=== PATIENT | female | born 1985 | race Caucasian/White ===

== ENCOUNTER 2018-08-10 11:10 | Outpatient (CLI) | payer BC ==
[2018-08-10 13:16] VITALS: PULSE 63; RESP 16; TEMP 98
--- NOTE | 2018-08-12 08:46 | P.MSEPDOC ---
Presenting Problems - Arrival Data Date of Arrival on Unit: 08/10/18 Time of Arrival on Unit: 11:10 Mode of Transport: Ambulatory - Complaint OB-Reason for Admission/Chief Complaint: Other Comment: decrease movement Medical History - Information : 1 Para: 0 Term: 0 : 0 Abortions: Spontaneous or Elective: 0 Number of Living Children: 0 - Gestational Age Gestational Age by [facility]I (wks/days): 36 Weeks and 2 Days Review of Systems - Review of Systems Constitutional: No problems Breast: No problems ENT: No problems Cardiovascular: No problems Respiratory: No problems Gastrointestinal: No problems Genitourinary: No problems Musculoskeletal: No problems Neurological: No problems Skin: No problems Vital Signs - Temperature Temperature: 98.0 F Temperature Source: Oral - Pulse Supine Pulse Rate: 63 Pulse Assessment Method: Automatic Cuff - Respirations Respiratory Rate: 16 Oxygen Delivery Method: Room Air Medical Screen Scoring (Pre) - Cervical Exam Dilation: Exam Deferred Effacement: Exam Deferred - Uterine Contractions Frequency: N/A Duration: N/A Intensity: N/A - Maternal Vital Signs Maternal Temperature: N/A - Pain Assessment Pain Intensity: 0 Pain Management Goal: 0 Pain Radiation Location: 0 Pain Duration: 0 - Maternal Trauma Maternal Trauma: N/A - Assessment Baseline FHR: 120 Heart Rate - NICHD Category: Category I (Normal) = 0 NST: Reactive Position: N/A - Total Score Total Score (Pre): 0 Physician Notification (Pre) - Physician Notified Physician Notified Date: 08/10/18 Physician Notified Time: 13:16 Physician/Practitioner Notifed:: dr dupont New Order Received: Yes - Notification Comment Comment: pt to discharge home and keep 315 appointment Disposition - Disposition OB Disposition: Discharge to home Discharge Date: 08/10/18 Discharge Time: 13:16 I agree with the RN Medical Screening Exam: Yes Risk & Benefit of care provided described in d/c instruction: Yes Diagnosis: DECREASED MOVEMENTS, THIRD TRIMESTER, FETUS 1
== END 2018-08-10 13:18 | disposition home or self-care (01) ==
LOC: FBPOP 11:10
PROVIDERS: ATTEND Obstetrics & Gynecology
DX: O36.8131 Decreased fetal movements, third trimester, fetus 1 (principal); Z3A.36 36 weeks gestation of pregnancy
CPT/HCPCS: 59025; 99213

== ENCOUNTER 2018-08-21 12:10 | Inpatient (IN) | payer BC ==
[2018-08-21] MEDS ORDERED: TERBUTALINE 1 MG/ML VIAL SQ PRN (15:36)
[2018-08-21] MEDS ORDERED: METHYLERGONOVINE 0.2 MG/ML 1 ML AMP IM PRN (15:36)
[2018-08-21] MEDS ORDERED: LIDOCAINE 0.5% (PF) 5 MG/ML (50 ML SDV) SQ PRN (15:36)
[2018-08-21] MEDS ORDERED: CARBOPROST TROMETHAMINE 250 MCG/ML 1 ML AMP IM PRN (15:36)
[2018-08-21] MEDS ORDERED: OXYTOCIN 10 UNIT/ML 1 ML VIAL IM PRN (15:36)
[2018-08-21] MEDS ORDERED: AMPICILLIN 2,000 MG in SODIUM CHLORIDE 0.9% 100 ML IVPB STA (15:37)
[2018-08-21] MEDS: LACTATED RINGERS 1,000 ML IV SCH ×2 (16:10→16:37)
[2018-08-21 16:19] VITALS: BMI 26.9
[2018-08-21 16:24] LABS: Basophils % (A) 0 %; Eosinophils # (A) 0.1 k/uL (0-0.7); Eosinophils % (A) 0 %; HCT 44.7 % (34.0-46.0); HGB 15.5 gm/dL (11.4-16.0); Lymphocytes # (A) 1.8 k/uL (1.0-4.8); Lymphocytes % (A) 12 %; MCH 31.7 pg (25.0-35.0); MCHC 34.7 g/dL (31.0-37.0); MCV 91.4 fL (80.0-100.0); Mean Platelet Volume 8.7; Monocytes # (A) 0.5 k/uL (0-1.0); Monocytes % (A) 4 %; Neutrophils # (A) 12.7 k/uL (1.3-7.7); Neutrophils % (A) 82 %; Platelet Count 218 k/uL (150-450); RBC 4.89 m/uL (3.80-5.40); RDW 13.1 % (11.5-15.5); WBC 15.5 k/uL (3.8-10.6)
[2018-08-21] MEDS ORDERED: ROPIVACAINE 5MG/ML 20ML VIAL ONE (16:31)
[2018-08-21] MEDS ORDERED: fentaNYL (PF) 50 MCG/ML 5 ML AMP ONE (16:31)
[2018-08-21] MEDS ORDERED: SODIUM CHLORIDE 0.9% 100 ML BAG ONE (16:31)
[2018-08-21] MEDS ORDERED: BENZOCAINE/MENTHOL SPRAY 1 GM/SPRAY AEROSOL TOPICAL PRN (18:57)
[2018-08-21] MEDS ORDERED: diphenhydrAMINE 50 MG CAP PO PRN (18:57)
[2018-08-21] MEDS ORDERED: diphenhydrAMINE 50 MG/ML 1 ML VIAL IVP PRN ×2 (18:57)
[2018-08-21] MEDS ORDERED: diphenhydrAMINE 25 MG CAP PO PRN (18:57)
[2018-08-21] MEDS ORDERED: HYDROCORTISONE 2.5% RECTAL CREAM 30 GM TUBE RECTAL PRN (18:57)
[2018-08-21] MEDS ORDERED: LANOLIN CREAM 5 GM TUBE TOPICAL PRN (18:57)
[2018-08-21] MEDS ORDERED: ZOLPIDEM 5 MG TAB PO PRN (18:57)
[2018-08-21] MEDS ORDERED: WITCH HAZEL 1 EACH MED..PAD TOPICAL PRN (18:57)
[2018-08-21] MEDS ORDERED: ACETAMINOPHEN TAB 325 MG TAB PO PRN (18:57)
[2018-08-21] MEDS ORDERED: MEASLES-MUMPS-RUBELLA VACC/PF 12,500 UNIT/0.5 ML VIAL SQ ONE (18:57)
[2018-08-21] MEDS ORDERED: SIMETHICONE 80 MG CHEWABLE PO PRN (18:57)
--- NOTE | 2018-08-21 18:59 | P.HPOB ---
History of Present Illness H&P Date: 08/21/18 Chief Complaint: Intrauterine at term: Active labor Livia is a 33-year-old at 37 weeks 6 days gestation who arrives in active labor making cervical change. She been servando throughout the night at presentation she was dilated to have sent meters by 2 hours later she was then 4. She was admitted for labor. Epidural was provided for pain management. Her course otherwise was generally unremarkable. She is have a low- lying placenta and had been measuring small for dates this had been followed closely. At this time all questions are answered for her. We'll plan spontaneous vaginal delivery and antibiotics for group B strep prophylaxis. Pertinent labs include O+ blood type Rh was negative, rubella is nonimmune, hepatitis B surface antigen and RPR were negative. GBS again was positive. Past Medical History Past Medical History: No Reported History History of Any Multi-Drug Resistant Organisms: None Reported Additional Past Surgical History / Comment(s): [place] tooth extraction, Left Calf I&D, Breast Biopsy Past Anesthesia/Blood Transfusion Reactions: No Reported Reaction Past Psychological History: No Psychological Hx Reported Smoking Status: Never smoker Past Alcohol Use History: None Reported Past Drug Use History: None Reported - Past Family History Father Family Medical History: Diabetes Mellitus, Hypertension, Thyroid Disorder Medications and Allergies Home Medications Medication Instructions Recorded Confirmed Type Pnv No.95/Ferrous Fum/Folic AC 1 each PO DAILY 08/21/18 08/21/18 History [ Multivitamin Tablet] Allergies Allergy/AdvReac Type Severity Reaction Status Date / Time sulfamethoxazole Allergy Anaphylaxis Verified 08/21/18 12:34 [From Bactrim] trimethoprim [From Bactrim] Allergy Anaphylaxis Verified 08/21/18 12:34 Exam Osteopathic Statement: *. No significant issues noted on an osteopathic structural exam other than those noted in the History and Physical/Consult. Vital Signs Temp Pulse Resp BP 08/21/18 16:00 98.3 F 86 18 115/65 08/21/18 12:37 98.2 F 74 16 125/74 Intake and Output 08/21/18 08/21/18 08/21/18 06:59 14:59 22:59 Other: Weight 71.214 kg 71.214 kg - OBG Physical Exam Breast: both: normal (no masses) Abdomen: bowel sounds normal, no diffuse tenderness, no bruit present, no guarding noted, no hepatomegaly, no splenomegaly, no mass Vulva: both: normal Vagina: normal moisture, no discharge Cervix: no lesion, no discharge Uterus: normal size, normal contour Adnexa: both: normal Anus/Rectum: normal perianal skin, no rectal mass, no hemorrhoids, heme negative Results Result Diagrams: 08/21/18 16:08 Abnormal Lab Results - Last 24 Hours (Table) 08/21/18 Range/Units 16:08 WBC 15.5 H (3.8-10.6) k/uL Neutrophils # 12.7 H (1.3-7.7) k/uL
--- NOTE | 2018-08-21 19:00 | P.PROBDLV ---
Vaginal Delivery Note - . Vaginal Delivery Note: Patient progressed complete and pushing with spontaneous vaginal delivery of a viable male over an intact perineum. Falling deliver the head anterior posterior shoulders were easily delivered followed by the remainder the baby. Mouth and nares were then bulb suctioned and baby was placed on mother's abdomen where the umbilical cord was allowed to pulsate for 60 seconds prior to clamping and cutting. Once this was accomplished nursery personnel was present to assume care. Placenta was then delivered intact Pitocin was added to the IV. scores were 8 and 9 at one and 5 minutes respectively. Weight is pending. Mother and baby are doing well and stable following delivery.
[2018-08-21] MEDS ORDERED: AMPICILLIN 1,000 MG in SODIUM CHLORIDE 0.9% 50 ML IVPB SCH (20:00)
[2018-08-21] MEDS: SENNOSIDES-DOCUSATE SODIUM 1 EACH TAB PO SCH (23:46)
[2018-08-22] MEDS: IBUPROFEN 600 MG TAB PO PRN ×2 (06:17→15:48)
[2018-08-22 07:41] LABS: Basophils # (A) 0.1 k/uL (0-0.2); Basophils % (A) 1 %; Eosinophils % (A) 0 %; HCT 38.5 % (34.0-46.0); HGB 12.7 gm/dL (11.4-16.0); Lymphocytes # (A) 2.8 k/uL (1.0-4.8); Lymphocytes % (A) 18 %; MCH 30.8 pg (25.0-35.0); MCV 93.3 fL (80.0-100.0); Mean Platelet Volume 9.8; Monocytes # (A) 0.9 k/uL (0-1.0); Monocytes % (A) 6 %; Neutrophils # (A) 11.5 k/uL (1.3-7.7); Neutrophils % (A) 74 %; Platelet Count 185 k/uL (150-450); RBC 4.13 m/uL (3.80-5.40); RDW 13.2 % (11.5-15.5); WBC 15.5 k/uL (3.8-10.6)
[2018-08-22] MEDS: SENNOSIDES-DOCUSATE SODIUM 1 EACH TAB PO SCH (08:00)
[2018-08-23] MEDS: SENNOSIDES-DOCUSATE SODIUM 1 EACH TAB PO SCH ×2 (00:13→09:14)
--- NOTE | 2018-08-23 08:43 | P.PNOBGVD ---
Subjective - Subjective Principal diagnosis: S/P NVD PPD #1 Interval history: Pt seen and examined. Denies N/V, F/C, CP, SOB, calf pain. Patient reports: Reports appetite normal, Reports voiding normally, Reports pain well controlled, Reports ambulating normally Objective - Latest Vital Signs Latest vital signs: Vital Signs Temp Pulse Resp BP Pulse Ox 08/22/18 23:55 98.3 F 64 16 119/75 08/22/18 16:00 97.5 F L 66 18 112/70 97 - Exam Lungs: bilateral: normal Chest: Normal S1, Normal S2 Extremities: Present: normal Abdomen: Present: normal appearance, soft Uterus: Present: normal, firm Assessment and Plan (1) Normal vaginal delivery Current Visit: Yes Status: Acute Code(s): O80 - ENCOUNTER FOR FULL-TERM UNCOMPLICATED DELIVERY SNOMED Code(s): 38313883 Plan: 1. cont pp care
[2018-08-23] MEDS: IBUPROFEN 600 MG TAB PO PRN ×2 (08:45→18:38)
--- NOTE | 2018-08-23 08:47 | P.DS ---
Providers Date of admission: 08/21/18 15:32 Expected date of discharge: 08/23/18 Attending physician: Frannie Maloney Primary care physician: Stated None - Discharge Diagnosis(es) (1) Normal vaginal delivery Current Visit: Yes Status: Acute Hospital Course: Pt admitted in labor. She underwent normal vaginal delivery. PP course was uncomplicated. Baby was admitted to the nursery with possible ileus. Pt will be discharged PPD #2 in stable condition to follow up with me in 6 weeks. Plan - Discharge Summary New Discharge Prescriptions: New Ibuprofen [Motrin] 600 mg PO Q6HR PRN #30 tab PRN Reason: Mild Pain Or Fever >= 100.5 No Action Pnv No.95/Ferrous Fum/Folic AC [ Multivitamin Tablet] 1 each PO DAILY Discharge Medication List Pnv No.95/Ferrous Fum/Folic AC [ Multivitamin Tablet] 1 each PO DAILY [History] Ibuprofen [Motrin] 600 mg PO Q6HR PRN #30 tab 08/23/18 [Rx] Follow up Appointment(s)/Referral(s): Frannie Maloney DO [Doctor of Osteopathic Medicine] - 6 Weeks Discharge Disposition: HOME SELF-CARE
[2018-08-23 09:04] VITALS: RESP 14
[2018-08-23 17:17] VITALS: BP 106/63; PULSE 63; TEMP 97.9
== END 2018-08-23 18:42 | disposition home or self-care (01) | DRG 807 ==
LOC: FBPOP 12:10 → 4FBP 15:32
PROVIDERS: ADMIT Obstetrics & Gynecology; ATTEND Obstetrics & Gynecology
PROC: 3E0R3NZ Introduction of Analgesics, Hypnotics, Sedatives into Spinal Canal, Percutaneous Approach (ICD-10-PCS; principal; 2018-08-21)
PROC: 00HU33Z Insertion of Infusion Device into Spinal Canal, Percutaneous Approach (ICD-10-PCS; principal; 2018-08-21)
PROC: 10907ZC Drainage of Amniotic Fluid, Therapeutic from Products of Conception, Via Natural or Artificial Opening (ICD-10-PCS; principal; 2018-08-21)
PROC: 10E0XZZ Delivery of Products of Conception, External Approach (ICD-10-PCS; principal; 2018-08-21)
DX: O36.5930 Maternal care for other known or suspected poor fetal growth, third trimester, not applicable or unspecified (principal); Z37.0 Single live birth; Z3A.37 37 weeks gestation of pregnancy; Z82.49 Family history of ischemic heart disease and other diseases of the circulatory system; Z83.3 Family history of diabetes mellitus; Z88.2 Allergy status to sulfonamides
CPT/HCPCS: 59025; 85025; 86850; 86900; 86901; 88307; 90471; 90707; 99213

== ENCOUNTER 2023-01-06 07:22 | Inpatient (IN) | payer BC ==
[2023-01-06] MEDS: LACTATED RINGERS 1,000 ML IV SCH ×2 (08:50→09:55)
[2023-01-06] MEDS ORDERED: ROPIVACAINE 5 MG/ML 20 ML AMPULE ONE (09:07)
[2023-01-06] MEDS ORDERED: SODIUM CHLORIDE 0.9% 100 ML BAG ONE (09:07)
[2023-01-06] MEDS ORDERED: fentaNYL (PF) 50 MCG/ML 5 ML AMP ONE (09:07)
[2023-01-06 09:15] LABS: Basophils # (A) 0.1 k/uL (0-0.2); Basophils % (A) 0 %; Eosinophils # (A) 0.1 k/uL (0-0.7); Eosinophils % (A) 0 %; HCT 42.6 % (34.0-46.0); Lymphocytes # (A) 1.9 k/uL (1.0-4.8); Lymphocytes % (A) 15 %; MCH 32.3 pg (25.0-35.0); MCHC 35.3 g/dL (31.0-37.0); MCV 91.5 fL (80.0-100.0); Mean Platelet Volume 10.3; Monocytes # (A) 0.5 k/uL (0-1.0); Monocytes % (A) 4 %; Neutrophils # (A) 10.2 k/uL (1.3-7.7); Neutrophils % (A) 79 %; Platelet Count 174 k/uL (150-450); RBC 4.65 m/uL (3.80-5.40); RDW 13.7 % (11.5-15.5)
[2023-01-06] MEDS ORDERED: CARBOPROST TROMETHAMINE 250 MCG/ML 1 ML AMP IM PRN (09:43)
[2023-01-06] MEDS ORDERED: miSOPROStoL 200 MCG TAB PO PRN (09:43)
[2023-01-06] MEDS ORDERED: TERBUTALINE 1 MG/ML VIAL SQ PRN (09:43)
[2023-01-06] MEDS ORDERED: OXYTOCIN 10 UNIT/ML 1 ML VIAL IM PRN (09:43)
[2023-01-06] MEDS ORDERED: TRANEXAMIC ACID IN NACL,ISO-OS 1,000 MG in EMPTY BAG 1 BAG IV PRN (09:43)
[2023-01-06] MEDS ORDERED: LIDOCAINE 0.5% (PF) 5 MG/ML (50 ML SDV) SQ PRN (09:43)
[2023-01-06] MEDS ORDERED: METHYLERGONOVINE 0.2 MG/ML 1 ML AMP IM PRN (09:43)
[2023-01-06] MEDS ORDERED: OXYTOCIN 30 UNITS/500 ML NS 30 UNIT in SALINE 1 500ML.BAG IV SCH (09:45)
[2023-01-06] MEDS ORDERED: ROPIVACAINE 225 MG, fentaNYL (PF). 450 MCG in SODIUM CHLORIDE 0.9% 171 ML EPIDURAL ONE (09:52)
--- NOTE | 2023-01-06 10:09 | P.HPOB ---
History of Present Illness H&P Date: 01/06/23 Chief Complaint: labor 37 year old presents at 39 weeks 1 day in labor. Her cervix is 5-6/80/-1. She is servando every 2-4 minutes. heart tones are 135 with moderate variability and reactive. Review of Systems All systems: negative Constitutional: Denies chills, Denies fever Eyes: denies blurred vision, denies pain Ears, nose, mouth and throat: Denies headache, Denies sore throat Cardiovascular: Denies chest pain, Denies shortness of breath Respiratory: Denies cough Gastrointestinal: Denies abdominal pain, Denies diarrhea, Denies nausea, Denies vomiting Genitourinary: Denies dysuria, Denies hematuria Musculoskeletal: Denies myalgias Integumentary: Denies pruritus, Denies rash Neurological: Denies numbness, Denies weakness Psychiatric: Denies anxiety, Denies depression Endocrine: Denies fatigue, Denies weight change Past Medical History Past Medical History: No Reported History History of Any Multi-Drug Resistant Organisms: None Reported Additional Past Surgical History / Comment(s): [place] tooth extraction, Left [place] f I&D, Breast Biopsy Past Anesthesia/Blood Transfusion Reactions: No Reported Reaction Past Psychological History: No Psychological Hx Reported Smoking Status: Never smoker Past Alcohol Use History: None Reported Past Drug Use History: None Reported - Past Family History Father Family Medical History: Diabetes Mellitus, Hypertension, Thyroid Disorder Medications and Allergies Home Medications Medication Instructions Recorded Confirmed Type Pnv No.95/Ferrous Fum/Folic AC 1 each PO DAILY 08/21/18 08/21/18 History [ Multivitamin Tablet] Ibuprofen [Motrin] 600 mg PO Q6HR PRN #30 tab 08/23/18 Rx Allergies Allergy/AdvReac Type Severity Reaction Status Date / Time sulfamethoxazole Allergy Anaphylaxis Verified 08/21/18 12:34 [From Bactrim] trimethoprim [From Bactrim] Allergy Anaphylaxis Verified 08/21/18 12:34 nickel AdvReac Rash/Hives Verified 01/06/23 07:43 Exam Osteopathic Statement: *. No significant issues noted on an osteopathic structural exam other than those noted in the History and Physical/Consult. Vital Signs Temp Pulse Resp BP Pulse Ox 01/06/23 08:50 64 18 109/68 100 01/06/23 07:43 97.7 F 73 18 118/71 100 Intake and Output 01/05/23 01/06/23 01/06/23 22:59 06:59 14:59 Other: Weight 69.853 kg Heart: Regular rate and rhythm Lungs: Clear to auscultation bilaterally Abdomen: Soft, nontender Extremities: Negative Homans sign Results Result Diagrams: 01/06/23 08:52 Abnormal Lab Results - Last 24 Hours (Table) 01/06/23 Range/Units 08:52 WBC 13.0 H (3.8-10.6) k/uL Neutrophils # 10.2 H (1.3-7.7) k/uL Assessment and Plan (1) IUGR (intrauterine growth restriction) Current Visit: Yes Status: Acute Code(s): KPW8712 - SNOMED Code(s): 40369847 (2) 39 weeks gestation of Current Visit: Yes Status: Acute Code(s): Z3A.39 - 39 WEEKS GESTATION OF SNOMED Code(s): 12381307 (3) Active labor Current Visit: Yes Status: Acute Code(s): OPZ1510 - SNOMED Code(s): 1 32543335 Plan: 1. admit to [facility] 2. expectant management 3. anticipate normal vaginal delivery
[2023-01-06] MEDS ORDERED: diphenhydrAMINE 50 MG CAP PO PRN (13:23)
[2023-01-06] MEDS ORDERED: BENZOCAINE/MENTHOL SPRAY 1 GM/SPRAY AEROSOL TOPICAL PRN (13:23)
[2023-01-06] MEDS ORDERED: ACETAMINOPHEN TAB 325 MG TAB PO PRN (13:23)
[2023-01-06] MEDS ORDERED: diphenhydrAMINE 25 MG CAP PO PRN (13:23)
[2023-01-06] MEDS ORDERED: diphenhydrAMINE 50 MG/ML 1 ML VIAL IVP PRN ×2 (13:23)
[2023-01-06] MEDS ORDERED: SIMETHICONE 80 MG CHEWABLE PO PRN (13:23)
[2023-01-06] MEDS ORDERED: ZOLPIDEM 5 MG TAB PO PRN (13:23)
[2023-01-06] MEDS ORDERED: HYDROCORTISONE 2.5% RECTAL CREAM 30 GM TUBE RECTAL PRN (13:23)
[2023-01-06] MEDS ORDERED: IBUPROFEN 600 MG TAB PO PRN (13:23)
--- NOTE | 2023-01-06 13:28 | P.PROBDLV ---
Vaginal Delivery Note - . Vaginal Delivery Note: The patient progressed to complete dilation after spontaneous labor and artificial rupture of membranes with clear fluid noted. She did receive epidural anesthesia. Once reaching complete, she began pushing. Infant's head came to a crown. With one further push, the 's head delivered across the perineum followed by the anterior shoulder. Nose and mouth were bulb suctioned at the perineum. With one further push the remainder the infant easily delivered and infant was placed on mother's abdomen. Nuchal cord times one was reduced around the body with delivery. A viable male infant is noted with scores of 8 at 1 minute and 9 at 5 minutes and weight of 6 lbs. 1 oz. Cord was clamped and cut and was taken to warmer for evaluation. Placenta delivered shortly thereafter, intact, with a three-vessel cord. Placenta was noted to have a very marginal cord insertion. Cord blood was obtained secondary to O+ blood type. Uterus contracted well after oxytocin was given and uterine massage was carried out. Inspection of the perineum revealed no perineal lacerations. Estimated blood loss is approximately 150 mL's. Both mother and are in stable condition.
[2023-01-06] MEDS: SENNOSIDES-DOCUSATE SODIUM 1 EACH TAB PO SCH (21:47)
[2023-01-07 05:45] LABS: Basophils % (A) 0 %; Eosinophils # (A) 0.1 k/uL (0-0.7); Eosinophils % (A) 1 %; HCT 37.2 % (34.0-46.0); HGB 12.8 gm/dL (11.4-16.0); Lymphocytes # (A) 2.5 k/uL (1.0-4.8); Lymphocytes % (A) 21 %; MCH 31.3 pg (25.0-35.0); MCHC 34.3 g/dL (31.0-37.0); MCV 91.3 fL (80.0-100.0); Mean Platelet Volume 9.5; Monocytes # (A) 0.6 k/uL (0-1.0); Monocytes % (A) 5 %; Neutrophils # (A) 8.3 k/uL (1.3-7.7); Neutrophils % (A) 70 %; Platelet Count 139 k/uL (150-450); RBC 4.08 m/uL (3.80-5.40); RDW 13.6 % (11.5-15.5); WBC 11.8 k/uL (3.8-10.6)
--- NOTE | 2023-01-07 08:07 | P.DS ---
Providers Date of admission: 01/06/23 08:34 Expected date of discharge: 01/07/23 Attending physician: Frannie Maloney Primary care physician: Stated None - Discharge Diagnosis(es) (1) IUGR (intrauterine growth restriction) Current Visit: Yes Status: Resolved (2) 39 weeks gestation of Current Visit: Yes Status: Resolved (3) Active labor Current Visit: Yes Status: Resolved (4) Normal vaginal delivery Current Visit: No Status: Acute Hospital Course: Patient was admitted in active labor. She underwent a normal vaginal delivery after epidural was placed. course been uneventful. Denies nausea, vomiting, chest pain, shortness of breath or calf pain. Patient will be discharged home day #1 in stable condition to follow-up with me in 6 weeks. Plan - Discharge Summary New Discharge Prescriptions: No Action Pnv No.95/Ferrous Fum/Folic AC [ Multivitamin Tablet] 1 each PO DAILY Ibuprofen [Motrin] 600 mg PO Q6HR PRN #30 tab PRN Reason: Mild Pain Or Fever >= 100.5 Discharge Medication List Pnv No.95/Ferrous Fum/Folic AC [ Multivitamin Tablet] 1 each PO DAILY 08/21/18 [History] Ibuprofen [Motrin] 600 mg PO Q6HR PRN #30 tab 08/23/18 [Rx] Follow up Appointment(s)/Referral(s): Frannie Maloney DO [Doctor of Osteopathic Medicine] - 6 Weeks Discharge Disposition: HOME SELF-CARE
[2023-01-07] MEDS: SENNOSIDES-DOCUSATE SODIUM 1 EACH TAB PO SCH (08:59)
[2023-01-07 11:55] VITALS: BP 105/70; PULSE 60; RESP 14; TEMP 97.6
== END 2023-01-07 15:40 | disposition home or self-care (01) | DRG 807 ==
LOC: FBPOP 07:22 → 4FBP 08:34
PROVIDERS: ADMIT Obstetrics & Gynecology; ATTEND Obstetrics & Gynecology
PROC: 10E0XZZ Delivery of Products of Conception, External Approach (ICD-10-PCS; principal; 2023-01-06)
PROC: 10907ZC Drainage of Amniotic Fluid, Therapeutic from Products of Conception, Via Natural or Artificial Opening (ICD-10-PCS; 2023-01-06)
PROC: 4A0HXCZ Measurement of Products of Conception, Cardiac Rate, External Approach (ICD-10-PCS; 2023-01-06)
DX: O36.5930 Maternal care for other known or suspected poor fetal growth, third trimester, not applicable or unspecified (principal); Z37.0 Single live birth; Z88.2 Allergy status to sulfonamides; O43.193 Other malformation of placenta, third trimester; O69.81X0 Labor and delivery complicated by cord around neck, without compression, not applicable or unspecified; Z88.8 Allergy status to other drugs, medicaments and biological substances; Z3A.39 39 weeks gestation of pregnancy
CPT/HCPCS: 59025; 85025; 86850; 86900; 86901; 88307; 99213